=== PATIENT | male | born 1970 | race Caucasian/White ===

== ENCOUNTER 2021-06-19 18:06 | Emergency (ER) | payer OTHER ==
[~2021-06-19] VITALS: Ht 182.9 cm; Wt 106.6 kg
[~2021-06-19 18:06] MED LIST: AMIT50; AMOCLA500 PO; Augmentin 875-1 EACH PO; CIPR500 PO; CLON.2 PO; CODGUAEL PO; CRUTCH4 USE; FLUO20 PO; HYDACE10 PO; HYDACE5 PO; HYDACE7.5 PO; HYDPAM50 PO; HYDR1TAB94 PO; IBUHYD PO; IBUP600 PO; IBUP800 PO; NAPR500 PO; NAPR500EC PO; OMEP20ER PO; OMEP40CA12 PO; OXYACE5T PO; OXYC10ER PO; OXYC15ER PO; OXYC5 PO; PROM25 PO; Prednisone20 MG PO; RANI150; RXHYDACE PO; TAMS.4ER PO; VALA500 PO
[2021-06-19] MEDS ORDERED: ATOR10 PO (18:26)
[2021-06-19] MEDS ORDERED: NAPROXEN250 M1 PO (18:27)
[2021-06-19 18:37] LABS: BASOPHILS ABSOLUTE AUTO 0.06 K/mm3 (0.00-0.23); BASOPHILS PERCENT AUTO 1 % (0-2); EOSINOPHILS ABSOLUTE AUTO 0.04 K/mm3 (0.00-0.68); EOSINOPHILS PERCENT AUTO 1 % (0-6); Hemoglobin 14.1 g/dL (13.5-17.5); IMMATURE GRAN ABSOLUTE AUTO 0.01 K/mm3 (0.00-0.10); IMMATURE GRAN PERCENT AUTO 0 % (0-1); LYMPHOCYTES ABSOLUTE AUTO 2.12 K/mm3 (0.84-5.20); LYMPHOCYTES PERCENT AUTO 33 % (21-46); MONOCYTES ABSOLUTE AUTO 0.76 K/mm3 (0.16-1.47); MONOCYTES PERCENT AUTO 12 % (4-13); Mean Corpuscular HGB 27.9 pg (26.0-34.0); Mean Corpuscular HGB Conc 34.4 g/dL (31.5-36.5); Mean Corpuscular Volume 81 fL (80-100); Mean Platelet Volume 9.9 fL (9.1-12.4); NEUTROPHILS PERCENT AUTO 53 % (41-73); Platelet Count 355 K/mm3 (150-400); RDW Coefficient Variation 12.3 % (11.7-14.2); RDW Standard Deviation 36.5 fL (35.1-46.3); Red Blood Cell Count 5.05 M/mm3 (4.30-5.90); White Blood Cell Count 6.39 K/mm3 (4.00-11.30)
[2021-06-19 18:41] LABS: Albumin/Globulin Ratio 0.9 (0.8-1.8); Bilirubin, Total 0.3 mg/dL (0.1-1.0); Bun/Creatinine Ratio 17.9 (12.0-20.0); Calcium, Blood 8.8 mg/dL (8.5-10.1); Creatinine, Blood 1.4 mg/dL (0.60-1.20); Globulin, Blood 4.5 g/dL (2.2-4.0); Potassium, Blood 4.7 mmol/L (3.5-5.5); Total Protein, Blood 8.5 g/dL (6.4-8.2)
== END 2021-06-19 19:44 | disposition home or self-care (01) ==
LOC: ER 18:06
PROVIDERS: Student in an Organized Health Care Education/Training Program
DX: R68.83 Chills (without fever) (principal); F17.200 Nicotine dependence, unspecified, uncomplicated; I10 Essential (primary) hypertension; K21.9 Gastro-esophageal reflux disease without esophagitis; M25.422 Effusion, left elbow; Z79.899 Other long term (current) drug therapy
CPT/HCPCS: 36415; 80053; 83605; 85025; 87040; 96374; 99283-25; J1885; J7030